=== PATIENT | female | born 1970 | race African-American/Black ===

== ENCOUNTER → 2020-06-13 13:48 | Outpatient (CLI) | payer OTHER, SELFPAY ==
--- NOTE | ~2020-06-13 | CT_ITS ---
EXAMINATION: CT abdomen pelvis wo con DATE: 06/13/2020 14:48 INDICATION: Hernia. TECHNIQUE: Computed tomography (CT) of the abdomen and pelvis was performed without intravenous contr ast. The dose-length product was 1021.57 mGy-cm. Automated exposure control and iterative reconstruct ion technique were employed. COMPARISON: 07/28/2018 FINDINGS: Lung bases are unremarkable. Heart size normal. No significant pleural or pericardial effus ion. The liver, spleen, pancreas, adrenal glands and kidneys are unremarkable. Nonobstructive bowel gas pa ttern. There is a small fat-containing left inguinal hernia. No abnormal pelvic masses or fluid colle ctions. No significant vascular abnormality. No lymphadenopathy. No acute osseous abnormality. No angus e air or free fluid. IMPRESSION: 1. Small fat-containing left inguinal hernia. Reviewed, dictated and finalized at location A.
== END ==
PROVIDERS: PCP Family Medicine; Visit Provider Surgery
DX: K40.90 Unilateral inguinal hernia, without obstruction or gangrene, not specified as recurrent (principal)
CPT/HCPCS: 74176

== ENCOUNTER 2022-09-01 16:53 | Emergency (ER) | payer OTHER, SELFPAY ==
[2022-09-01 18:15] LABS: Basophils Percent Auto 0.6 % (0.2-1.2); Eosinophils Absolute Auto 0.4 K/mm3 (0-0.3); Eosinophils Percent Auto 6.5 % (0-4.4); Hematocrit 39.3 % (37.0-47.0); Immature Granulocyte Absolute 0.02 K/mm3 (0.00-0.031); Immature Granulocyte Percent A 0.3 % (0-0.5); Lymphocytes Absolute Auto 2.08 K/mm3 (0.9-3.2); Lymphocytes Percent Auto 30.6 % (18.3-44.2); Mean Corpuscular HGB Conc 30.5 g/dl (32-36); Mean Corpuscular Hemoglobin 27.3 pg (26-34); Mean Corpuscular Volume 89.3 fl (80-100); Mean Platelet Volume 11.1 fl (7.4-10.4); Monocytes Absolute Auto 0.8 K/mm3 (0.1-0.6); Monocytes Percent Auto 12.1 % (2.6-8.5); Neutrophils Absolute Auto 3.4 K/mm3 (1.3-6.7); Neutrophils Percent Auto 49.9 % (45.5-73.1); Platelet Count Result 322 k/mm3 (150-375); Red Cell Distribution Width 12.8 % (11.5-14.5); White Blood Count 6.8 K/mm3 (4.5-10.0)
[2022-09-01 18:29] LABS: INR 1.1; Prothrombin Time 14.2 Seconds (11.1-14.7)
[2022-09-01 18:30] LABS: Partial Thromboplastin Time 30.3 SECONDS (22.3-36.8)
[2022-09-01 18:31] LABS: Alanine Aminotransferase 25 U/L (6-35); Albumin Level 3.9 g/dL (3.5-5.1); Alkaline Phosphatase 91 U/L (38-126); Anion Gap 6 mmol/L (8-16); Aspartate Amino Transferase 21 U/L (14-36); Bilirubin,Total 0.2 mg/dL (0.2-1.3); Blood Urea Nitrogen 14 mg/dL (7-17); Calcium 8.7 mg/dL (8.4-10.2); Carbon Dioxide 30 mmol/L (22-30); Chloride 106 mmol/L (98-107); Estimated CRCL calculation 84 ml/min; Estimated Glomerular Filt Rate > 60; Glucose 86 mg/dL (65-110); Potassium 3.9 mmol/L (3.4-5.0); Sodium 142 mmol/L (137-145)
[2022-09-02 00:29] VITALS: BP 150/95; PULSE 85; RESP 16; O2SAT 98
[2022-09-02 01:35] VITALS: BP 123/89; PULSE 89; RESP 19; O2SAT 97
[2022-09-02] MEDS: DOCUSATE SODIUM 100 MG CAPSULE PO (02:01)
--- NOTE | 2022-09-02 02:20 | ED.GENADULT ---
HPI - General Adult General Chief complaint: GI Bleed Stated complaint: rectal bleeding Time Seen by Provider: 09/02/22 00:38 History of Present Illness HPI narrative: Patient is a 52-year-old female who presents ER with concerns for hernia discomfort and bleeding from her rectum. She has been straining to poop the last couple days and has been passing hard nuggets. It is associated bright red blood on 1 occasion. No pain around the rectum. She has also developed some increased pain along her lower abdominal wall near the inguinal area where she is known to have a inguinal hernia. She is discussed with Dr. Astudillo in the past having it repaired but had not proceeded with the procedure. No large defect. She is passing gas. No abdominal distention or bloating. Denies fevers chills or sweats. Pain is worse with straining and direct palpation. Related Data Home Medications Medication Instructions Recorded Confirmed cetirizine 5 mg tablet 5 mg PO HS 07/10/20 06/12/22 Allergies Allergy/AdvReac Type Severity Reaction Status Date / Time iodine Allergy Unknown ITCHING, Verified 09/02/22 00:52 SWELLING, WHEEZING lactase Allergy Unknown Wheezing Verified 09/02/22 00:52 milk Allergy Unknown Wheezing Verified 09/02/22 00:52 naproxen Allergy Unknown BLEEDING Verified 09/02/22 00:52 ULCER NSAIDS (Non-Steroidal Allergy Unknown BLEEDING Verified 09/02/22 00:52 Anti-Inflamma ULCER WITH PRESCIPTION NSAIDS Penicillins Allergy Unknown Unknown Verified 09/02/22 00:52 Reaction Contrast Media Allergy Unknown RESPIR. Uncoded 09/02/22 00:52 DISTRESS Dairy Allergy Unknown WHEEZING Uncoded 09/02/22 00:52 Review of Systems Review of Systems: All systems reviewed & are unremarkable except as noted in HPI and below Constitutional: Constitutional: Denies chills and Denies fever(s) Cardiovascular: Cardiovascular: Denies chest pain, Denies rapid heart rate and Denies radiating jaw, neck or arm pain Respiratory: Respiratory: Denies cough and Denies dyspnea Gastrointestinal: Gastrointestinal: Reports abdominal pain, Reports constipation, Denies diarrhea, Denies nausea and Denies vomiting Genitourinary: Genitourinary: Denies nocturia and Denies dysuria REPLACED BY [facility] Past Medical History Medical History (Updated 09/02/22 @ 02:21 by Gianni Rasmussen MD) Anemia Asthma Bronchitis History of GI bleed History of ovarian cyst 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 Moderate persistent asthma Pollen allergies Ulcer Surgical History Surgical History H/O hernia repair 2014 and 2016 History of classical section x3 History of colonoscopy History of esophagogastroduodenoscopy (EGD) History of hysterectomy History of tooth extraction multiple Family History Family History Mother Family history of osteoporosis Asthma Patient's mother is in good health Father Family history of heart disease in male family member before age 55 Hypertension Asthma Patient's father is in good health Family history of cardiovascular disease Diabetes mellitus Grandparent Colon cancer Other Family history of allergic disorder Social History Social History Social History: Smoking status: Never smoker Second hand tobacco smoke exposure: No Alcohol intake: never Substance use: never Substance use type: does not use 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 HEAD: Normocephalic, atraumatic. CHEST: Clear to auscultation. No respiratory distress. HEART: Regular ra
== END 2022-09-02 02:50 | disposition home or self-care (01) ==
PROVIDERS: Emergency Medicine; Emergency Provider Emergency Medicine; PCP Family Medicine
DX: K59.00 Constipation, unspecified (principal); J45.40 Moderate persistent asthma, uncomplicated; Z86.2 Personal history of diseases of the blood and blood-forming organs and certain disorders involving the immune mechanism; Z90.710 Acquired absence of both cervix and uterus
CPT/HCPCS: 36415; 80053; 85025; 85610; 85730; 86850; 86900; 86901; 99283; A9270

== ENCOUNTER 2022-09-23 09:55 | Inpatient (IN) | payer OTHER, SELFPAY ==
[2022-09-23] VITALS (15 sets, daily range): BP systolic 137–172; BP diastolic 75–104; PULSE 96–118; RESP 16–26; TEMP 36.1–36.6; O2SAT 98–100; BMI 31.8
--- NOTE | 2022-09-23 | ECHO_ITS ---
Patient Info Name: Jeri Sellers Age: 52 years : 1970 Gender: Female Ht: 68 in Wt: 202 lbs BSA: 2.12 m2 HR: 110 bpm BP: 148 / 83 mmHg Heart Rhythm: Tachycardia Technical Quality: Fair Exam Date: 09/23/2022 4:39 PM Exam Location: [facility] Pul[facility] Patient Status: Outpatient Admit Date: 09/23/2022 Staff Ordering Physician: Dahiana Thornton NP Risk Tech: Casi Reynolds RDCS Attending Provider: Aleida Vera MD Referring Physician: Hillary ISRAEL; Exam Type: CA echo doppler color flow Study Info Indications R07.9 - Chest pain, unspecified Complete two-dimensional, color flow and Doppler transthoracic echocardiogram is performed. Summary 1. Complete two-dimensional, color flow and Doppler transthoracic echocardiogram is performed. 2. Left ventricular chamber dimension is normal. 3. Left ventricular systolic function is normal, estimated at 65-70%. 4. The left ventricular diastolic function is grade II diastolic dysfunction. 5. E/e' 8 is minimally elevated. 6. There is trace tricuspid valve regurgitation. 7. No pulmonary hypertension, estimated pulmonary arterial systolic pressure is 20 mmHg. Left Ventricle E/e' 8 is minimally elevated. Left ventricular chamber dimension is normal. Left ventricular systolic function is normal, estimated at 65-70%. The left ventricular diastolic function is grade II diastolic dysfunction. Right Ventricle Right ventricular systolic function is normal and with normal TAPSE 1.8 cm. Right ventricular chamber dimension is normal. Left Atria Left atrial chamber dimension is normal. Right Atria Right atrial chamber dimension is normal. Aortic Valve The aortic valve is trileaflet. There is no aortic valve stenosis. There is no aortic valve regurgitation. Pulmonic Valve There is no pulmonic regurgitation. Mitral Valve There is no mitral valve stenosis. There is no mitral valve regurgitation. Tricuspid Valve There is trace tricuspid valve regurgitation. No pulmonary hypertension, estimated pulmonary arterial systolic pressure is 20 mmHg. Pericardium/Pleural There is no pericardial effusion. Inferior Vena Cava Normal inferior vena cava with >50% collapse upon inspiration consistent with normal right atrial pressure, 5 mmHg. Aorta The aortic root size at the sinus of Valsalva is normal. Left Ventricular Outflow Tract Name Value Normal LVOT 2D LVOT Diameter 2.0 cm LVOT Doppler LVOT Peak Gradient 5 mmHg LVOT Mean Gradient 2 mmHg LVOT VTI 19 cm LVOT VTI/AV VTI Ratio 0.8 LVOT Stroke Volume 60 ml LVOT CO 6.3 l/min LVOT CI 3.0 l/min/m2 Pulmonic Valve Name Value Normal RVOT Doppler
--- NOTE | ~2022-09-23 | US_ITS ---
EXAMINATION: US venous doppler [facility] DATE: 09/23/2022 14:03 INDICATION: Bilateral lower limb pain TECHNIQUE: Sethi scale images without and with compression and Doppler images of the bilateral lower e xtremity veins were obtained. COMPARISON: None FINDINGS: The right common femoral vein, profunda femoral vein, femoral vein, popliteal vein, peroneal trunk, p osterior tibial veins, and greater saphenous vein are patent. The left common femoral vein, profunda femoral vein, femoral vein, popliteal vein, peroneal trunk, po sterior tibial veins, and greater saphenous vein are patent. IMPRESSION: 1. Patent bilateral lower extremity veins. No evidence of deep venous thrombosis. Reviewed, dictated and finalized at location L. PUBLIC RELATIONS IMPRESSION: 1. Patent bilateral lower extremity veins. No evidence of deep venous thrombosi s.
--- NOTE | ~2022-09-23 | CT_ITS ---
Clinical Indication: Dyspnea CT Scan of the Chest with Contrast: Technique: Contiguous sections were acquired throughout the chest after intravenous administration of 100 cc of Omnipaque 350. Dose reduction technique was used on this scan by utilizing automated expos ure control and iterative reconstruction technique. The dose-length product (DLP) was 355.06 mGy-cm. COMPARISON: 08/18/2014 Findings: There is no evidence of any significant mediastinal, hilar or axillary lymphadenopathy. There is no f illing defect in the pulmonary arterial tree to suggest pulmonary embolus. There is no evidence of ao rtic dissection or aneurysm. There is no evidence of pleural or pericardial effusion. Stable 4 mm fissural nodule along the anterior right minor fissure. Images through the upper abdomen reveal no abnormalities. Impression: No evidence of pulmonary embolus, aortic dissection, or aortic aneurysm. Stable fissural nodule, as noted above. Stability over this time interval is compatible with benignit y. No significant pulmonary abnormality seen. Reviewed, dictated and finalized at [facility]. 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 Stable fissural nodule, as noted above. Stability over this time interval is co mpatible with benignity. No significant pulmonary abnormality seen.
--- NOTE | ~2022-09-23 | XR_ITS ---
Clinical Indication: Chest pain PA and lateral views of the chest: Comparison: 07/29/2019 Findings: The lungs are clear, without evidence of focal consolidation or pleural effusion. Cardiome diastinal silhouette is within normal limits. Bones and soft tissues are unremarkable. Impression: Normal chest. Reviewed, dictated and finalized at [facility]. 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
--- NOTE | 2022-09-23 09:56 | ECG_ITS ---
Measurements Intervals [place] Rate: 101 P: 112 AL: 180 QRS: 174 QRSD: 97 T: 151 QT: 331 QTc: 430 Interpretive Statements SINUS TACHYCARDIA ARM LEADS REVERSED [INVERTED P AND QRS IN I] ABNORMAL RHYTHM ECG NO PREVIOUS ECG AVAILABLE FOR COMPARISON Electronically Signed On 09-23-2022 14:52:54 MACHINE HOSE CUTTER by Bri Spann M.D.
[2022-09-23 10:13] LABS: Basophils Absolute Auto 0.1 K/mm3 (0.0-0.1); Basophils Percent Auto 0.8 % (0.2-1.2); Eosinophils Absolute Auto 0.5 K/mm3 (0-0.3); Eosinophils Percent Auto 7.7 % (0-4.4); Hematocrit 36.9 % (37.0-47.0); Hemoglobin 11.5 g/dL (12.0-15.0); Immature Granulocyte Absolute 0.01 K/mm3 (0.00-0.031); Immature Granulocyte Percent A 0.2 % (0-0.5); Lymphocytes Absolute Auto 2.01 K/mm3 (0.9-3.2); Lymphocytes Percent Auto 32.7 % (18.3-44.2); Mean Corpuscular HGB Conc 31.2 g/dl (32-36); Mean Corpuscular Hemoglobin 26.8 pg (26-34); Monocytes Absolute Auto 0.7 K/mm3 (0.1-0.6); Monocytes Percent Auto 11.9 % (2.6-8.5); Neutrophils Absolute Auto 2.9 K/mm3 (1.3-6.7); Neutrophils Percent Auto 46.7 % (45.5-73.1); Platelet Count Result 290 k/mm3 (150-375); Red Blood Count 4.29 M/mm3 (4.2-5.4); Red Cell Distribution Width 12.4 % (11.5-14.5); White Blood Count 6.1 K/mm3 (4.5-10.0)
[2022-09-23 10:22] LABS: Alanine Aminotransferase 49 U/L (6-35); Albumin Level 3.5 g/dL (3.5-5.1); Alkaline Phosphatase 93 U/L (38-126); Anion Gap 3 mmol/L (8-16); Aspartate Amino Transferase 33 U/L (14-36); Bilirubin,Total 0.5 mg/dL (0.2-1.3); Blood Urea Nitrogen 9 mg/dL (7-17); Calcium 8.7 mg/dL (8.4-10.2); Carbon Dioxide 30 mmol/L (22-30); Chloride 108 mmol/L (98-107); Estimated CRCL calculation 108 ml/min; Estimated Glomerular Filt Rate > 60; Glucose 86 mg/dL (65-110); Lipase 101 U/L (23-300); Potassium 3.6 mmol/L (3.4-5.0); Sodium 141 mmol/L (137-145)
[2022-09-23 10:25] LABS: INR 1.1; Partial Thromboplastin Time 30.9 SECONDS (22.3-36.8); Prothrombin Time 13.9 Seconds (11.1-14.7)
[2022-09-23 10:35] LABS: Troponin I < 0.012 ng/mL (0.000-0.034)
--- NOTE | 2022-09-23 11:10 | ED.CHESTPAIN ---
HPI - Chest Pain General Chief Complaint: Chest Pain Stated Complaint: chest pain Time Seen by Provider: 09/23/22 10:57 History of Present Illness HPI narrative: 52-year-old female with history of asthma presents with several days of increasing dyspnea and feeling of chest pressure, she states that she thinks it might be pneumonia, she states that she is able to lay flat without having trouble breathing, and she also has bilateral lower extremity swelling for the last 2 days. No history of heart disease in the past the family history of heart disease. Also describing cough, she did try her inhalers and they did not help. Related Data Allergies Allergy/AdvReac Type Severity Reaction Status Date / Time iodine Allergy Unknown ITCHING, Verified 09/23/22 10:58 SWELLING, WHEEZING lactase Allergy Unknown Wheezing Verified 09/23/22 10:58 milk Allergy Unknown Wheezing Verified 09/23/22 10:58 naproxen Allergy Unknown BLEEDING Verified 09/23/22 10:58 ULCER NSAIDS (Non-Steroidal Allergy Unknown BLEEDING Verified 09/23/22 10:58 Anti-Inflamma ULCER WITH PRESCIPTION NSAIDS Penicillins Allergy Unknown Unknown Verified 09/23/22 10:58 Reaction Contrast Media Allergy Unknown RESPIR. Uncoded 09/23/22 10:58 DISTRESS Dairy Allergy Unknown WHEEZING Uncoded 09/23/22 10:58 Review of Systems Review of Systems: CONST: No fever. HEENT: No sore throat C/V: Chest pressure RESP: cough GI: No nausea or vomiting : No dysuria. M/S: Bilateral lower extremity edema SKIN: No rash. 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 Moderate persistent asthma Pollen allergies Ulcer Surgical History Surgical History H/O hernia repair 2014 and 2016 History of classical section x3 History of colonoscopy History of esophagogastroduodenoscopy (EGD) History of hysterectomy History of tooth extraction multiple Family History Family History Mother Family history of osteoporosis Asthma Patient's mother is in good health Father Family history of heart disease in male family member before age 55 Hypertension Asthma Patient's father is in good health Family history of cardiovascular disease Diabetes mellitus Grandparent Colon cancer Other Family history of allergic disorder Social History Social History (Updated 09/23/22 @ 12:49 by Dahiana Thornton NP) Social History: She is and has 3 children. 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 EYES: EOMI, conjunctiva normal ENT: Hearing grossly intact LUNGS: Nonlabored breathing. Some mild wheezing and expiratory HEART: Minimally tachycardic ABD: [Soft], [nontender to palpation] EXT: Normal range of motion, bilateral lower extremity edema SKIN: [No rashes or lesions.] NEURO: [Alert and oriented x 3. No gross focal sensory or strength deficits.] PSYCH: Normal affect Course Vital Signs Vital signs: V
[2022-09-23 11:29] LABS: D Dimer 0.77 ug/mL (<0.48)
[2022-09-23 11:43] LABS: NT Pro B Type Natriuretic Pept 213 pg/mL (19.9-100)
[2022-09-23] MEDS: predniSONE 40 MG, predniSONE 10 MG 50 MG PO (12:07)
--- NOTE | 2022-09-23 12:21 | PM.IMHP ---
H&P: HPI History of Present Illness Date/Time: 09/23/22 12:21 Chief Complaint: Chest pain Narrative: This is a 52-year-old female patient who has multiple allergies. The patient does not smoke and has seasonal allergies as well. The patient also has a history of asthma. She has had several days of increasing dyspnea and feeling chest pressure. The patient has chest discomfort on the right upper chest and mid chest and left upper chest and left underarm. She stated she has some tenderness to the mid chest and her left arm pain is only when she raises her left arm. She denies any extraneous activity. The patient has not used her inhalers. The patient was given a nebulizer treatment and prednisone. COVID RSV and influenza are pending. She does have a history of anemia under H&H 11.5 and 36.9. D-dimer is 0.77. We were unable to do a CTA at this time if she is allergic to contrast medium. The patient will need to be premedicated. The patient is being admitted to observation status on 09/23/2022. Review of Systems Review of Systems: See HPI All systems reviewed & are unremarkable except as noted in HPI and below Constitutional: Constitutional: Reports as per HPI and Reports no additional constitutional complaints Eyes: Eyes: Reports as per HPI and Reports no additional eye complaints ENT: Reports system reviewed and no additional complaints, except as documented and Reports Normal hearing present Cardiovascular: Cardiovascular: Reports no additional cardiovascular complaints Respiratory: Respiratory: Reports no additional respiratory complaints and Reports no additional respiratory complaints Gastrointestinal: Gastrointestinal: Reports as per HPI and Reports no additional gastrointestinal complaints Musculoskeletal: Musculoskeletal: Reports no additional musculoskeletal complaints Integumentary/Breasts: Skin/Breast: Reports system reviewed and no additional complaints, except as docu and Reports as per HPI Neurologic: Reports system reviewed and no additional complaints, except as documented, Reports as per HPI and Reports Normal hearing present Psychiatric: Psychiatric: Reports no additional psychiatric complaints and Reports as per HPI Endocrine: Endocrine: Reports no additional endocrine complaints Hematologic/Lymphatic: Hematologic/Lymphatic: Reports no additional hematologic/lymphatic complaints Allergic/Immunologic: Allergic/Immunologic: Reports no additional allergic/immunologic complaints [facility] Past Medical History Medical History (Updated 09/23/22 @ 12:59 by Dahiana Thornton NP) Anemia Asthma Bronchitis History of GI bleed History of ovarian cyst 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 Moderate persistent asthma Pollen allergies Ulcer Surgical History Surgical History H/O hernia repair 2015 and 2016 History of classical section x3 History of colonoscopy History of esophagogastroduodenoscopy (EGD) History of hysterectomy History of tooth extraction multiple Family History Family History Mother Family history of osteoporosis Asthma Patient's mother is in good health Father Family history of heart disease in male family member before age 55 Hypertension Asthma Patient's father is in good health Family history of cardiovascular disease Diabetes mellitus Grandparent Colon cancer Other Family history of allergic disorder Social History Social History (Updated 09/23/22 @ 12:49 by Dahiana Thornton NP) Social History: She is and has 3 children. 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
[2022-09-23] MEDS: ALBUTEROL SULFATE NEB 2.5 MG/3 ML INH 15 MG INHALATION (12:27)
[2022-09-23] MEDS: IPRATROPIUM BR 0.02% INH SOLN 0.5 MG/2.5 ML VIAL 1 MG INHALATION ×2 (12:27→21:29)
[2022-09-23 12:54] LABS: Influenza A QL RT-PCR Negative (Negative); Influenza B QL RT-PCR Negative (Negative); RSV RNA, RT-PCR Negative (Negative); SARS-CoV-2 RNA PCR Negative
[2022-09-23] MEDS: MAGNESIUM SULF 2 GM/WATER 50ML 2 GM/50 ML BAG IVPB (12:56)
[2022-09-23 13:06] LABS: Troponin I < 0.012 ng/mL (0.000-0.034)
--- NOTE | 2022-09-23 14:40 | ADMGEN ---
This patient, Jeri Sellers, was admitted to [facility] Surg Room 323-02. Patient/family oriented to hospital policies and general routines including ID bracelet, bed and alarms, visiting hours, pain management, procedures, bathroom and other care routines, personal items, smoking policy, room service/diet, and visiting hours. Information on how to activate the Rapid Response Team has been discussed. Patient/Family are encouraged to report perceived risks to care and to ask questions if they do not understand what they are told or what they should do.
[2022-09-23 16:05] LABS: Troponin I < 0.012 ng/mL (0.000-0.034)
[2022-09-23] MEDS: methylPREDNISolone SOD SUCC 125 MG VIAL 60 MG IV PUSH (19:54)
[2022-09-23] MEDS: MONTELUKAST SODIUM 10 MG TABLET PO (20:02)
[2022-09-23] MEDS: ALBUTEROL SULFATE NEB 2.5 MG/3 ML INH 1.25 MG INHALATION (21:28)
[2022-09-24] VITALS (16 sets, daily range): BP systolic 140–164; BP diastolic 85–97; PULSE 102–130; RESP 16–18; TEMP 36.2–36.8; O2SAT 98–100
[2022-09-24] MEDS: methylPREDNISolone SOD SUCC 125 MG VIAL 60 MG IV PUSH ×4 (01:00→17:37)
--- NOTE | 2022-09-24 03:26 | PCRCNOTE ---
Window of time for administration has passed. See next scheduled administration.
[2022-09-24 06:09] LABS: Hematocrit 36.6 % (37.0-47.0); Hemoglobin 11.6 g/dL (12.0-15.0); Immature Granulocyte Absolute 0.04 K/mm3 (0.00-0.031); Immature Granulocyte Percent A 0.6 % (0-0.5); Lymphocytes Absolute Auto 0.57 K/mm3 (0.9-3.2); Lymphocytes Percent Auto 8.2 % (18.3-44.2); Mean Corpuscular HGB Conc 31.7 g/dl (32-36); Mean Corpuscular Hemoglobin 26.7 pg (26-34); Mean Corpuscular Volume 84.3 fl (80-100); Mean Platelet Volume 11.1 fl (7.4-10.4); Monocytes Absolute Auto 0.1 K/mm3 (0.1-0.6); Monocytes Percent Auto 1.2 % (2.6-8.5); Neutrophils Absolute Auto 6.2 K/mm3 (1.3-6.7); Platelet Count Result 317 k/mm3 (150-375); Red Blood Count 4.34 M/mm3 (4.2-5.4); Red Cell Distribution Width 12.2 % (11.5-14.5); White Blood Count 6.9 K/mm3 (4.5-10.0)
[2022-09-24 06:24] LABS: Alanine Aminotransferase 41 U/L (6-35); Albumin Level 3.5 g/dL (3.5-5.1); Alkaline Phosphatase 89 U/L (38-126); Anion Gap 5 mmol/L (8-16); Aspartate Amino Transferase 29 U/L (14-36); Bilirubin,Total 0.4 mg/dL (0.2-1.3); Blood Urea Nitrogen 11 mg/dL (7-17); Calcium 8.9 mg/dL (8.4-10.2); Carbon Dioxide 26 mmol/L (22-30); Chloride 109 mmol/L (98-107); Estimated CRCL calculation 129 ml/min; Estimated Glomerular Filt Rate > 60; Glucose 133 mg/dL (65-110); Magnesium 2.1 mg/dL (1.6-2.3); Potassium 3.6 mmol/L (3.4-5.0); Sodium 140 mmol/L (137-145)
[2022-09-24 06:57] LABS: Thyroid Stimulating Hormone Reflex < 0.015 uIU/mL (0.465-4.68)
[2022-09-24] MEDS: diphenhydrAMINE HCl INJ 50 MG/ML VIAL IV PUSH (07:29)
--- NOTE | 2022-09-24 08:14 | PC.NURSE ---
patient to CT per wheelchair
--- NOTE | 2022-09-24 08:32 | PC.NURSE ---
patient returning to room from ct
[2022-09-24] MEDS: ENOXAPARIN 40 MG/0.4 ML SYRINGE SUB-Q (08:34)
--- NOTE | 2022-09-24 09:00 | PM.IMPN ---
Progress Note: A&P Assessment and Plan (1) Asthma exacerbation: Code(s): J45.901 - Unspecified asthma with (acute) exacerbation Status: Acute Assessment and Plan: HX of asthma Continue neb treatments, singulair, and solumedrol Currently stable on room air No wheezing noted Continue to trend (2) Chest pain: Code(s): R07.9 - Chest pain, unspecified Status: Acute Assessment and Plan: Chest pain noted to be middle chest radiating under the right breast Cardiac enzymes negative Echo shows EF of 65-70% with grade 2 diastolic heart failure Flu, Covid, and RSV negative Probably secondary to cough or could be from tachycardia or CHF (3) Elevated d-dimer: Code(s): R79.89 - Other specified abnormal findings of blood chemistry Status: Acute Assessment and Plan: DDimer elevated at 0.77 CTA negative or PE Venous (4) Congestive heart failure: Code(s): I50.9 - Heart failure, unspecified Status: Acute Assessment and Plan: Could be an acute exacerbation of diastolic heart failure Tachycardia, chest pain, lower extremity swelling Give 40mg IV lasix x 1 Zana hose Echo shows EF of 56-70% with grade 2 diastolic dysfunction Daily weights Strict I&Os Time Spent With Patient Time: 52 minutes Subjective Date/time seen: 09/24/22 09 Interval history: 09/24/22899 Patient is laying in bed. She stated that she is still having chest pain that radiated under the right breast. She can take a deep breath and did state that she feels a lot better than she did yesterday. She denies any chest pain, shortness of breath, nausea, vomiting, diarrhea, constipation. She does have some left lower leg swelling. She is also tachycardiac and her BNP is slightly elevated, and echo shows grade II diastolic dysfunction. 09/23/22 1221 This is a 52-year-old female patient who has multiple allergies.? The patient does not smoke and has seasonal allergies as well.? The patient also has a history of asthma.? She has had several days of increasing dyspnea and feeling chest pressure.? The patient has chest discomfort on the right upper chest and mid chest and left upper chest and left underarm.? She stated she has some tenderness to the mid chest and her left arm pain is only when she raises her left arm.? She denies any extraneous activity.? The patient has not used her inhalers.? The patient was given a nebulizer treatment and prednisone.? COVID RSV and influenza are pending.? She does have a history of anemia under H&H 11.5 and 36.9.? D-dimer is 0.77.? We were unable to do a CTA at this time if she is allergic to contrast medium.? The patient will need to be premedicated.? The patient is being admitted to observation status on 09/23/2022. Review of Systems Review of Systems: All systems reviewed & are unremarkable except as noted in HPI and below Exam Narrative: General: well-nourished, well-appearing 52-year-old female, sitting up in bed, comfortable, NARD Neuro: awake, alert and oriented x4, speech clear, no focal neuro deficits noted HEENMT: normocephalic, atraumatic, EOMI, sclerae anicteric, moist oral mucosa Respiratory: Clear to auscultation bilaterally without crackles, rhonchi or wheezes, nonlabored breathing Cardio: tachycardiac, regular rhythm with S1-S2 Abdomen: nondistended, normoactive bowel sounds, soft, nontender to palpation Extremities: 1-2+ bilateral lower extremity pitting edema, no erythema, or tenderness to palpation, DP pulses 2+ bilaterally Skin: no rashes or lesions, warm and dry Psych: appropriate mood and affect, judgment and insight intact Objective Data Vital Signs Vital Signs: Vital Signs - 24 hr 09/23/22 14:55 09/23/22 14:30 09/23/22 16:00 Temperature 97 F L Pulse Rate 110 H 110 H 108 H Respiratory Rate 16 16 Blood Pressure 148/83 H Pulse Oximetry 99 99 Oxygen Delivery Room Air
[2022-09-24 09:52] LABS: Free T4 Free Thyroxine Reflex 3.99 ng/dL (0.78-2.19)
[2022-09-24] MEDS: FUROSEMIDE INJ 40 MG/4 ML VIAL IV PUSH ×2 (10:23→17:37)
[2022-09-24] MEDS: METOPROLOL TARTRATE INJ 5 MG/5 ML VIAL IV PUSH (14:09)
[2022-09-24] MEDS: METOPROLOL TARTRATE 12.5 MG TABLET PO ×2 (15:16→20:46)
[2022-09-24] MEDS: PANTOPRAZOLE SODIUM IV 40 MG VIAL IV PUSH ×2 (15:16→20:47)
[2022-09-24] MEDS: METOPROLOL TARTRATE INJ 5 MG/5 ML VIAL 2.5 MG IV PUSH (15:45)
[2022-09-24] MEDS: MONTELUKAST SODIUM 10 MG TABLET PO (20:46)
[2022-09-25] VITALS (10 sets, daily range): BP systolic 127–135; BP diastolic 80–87; PULSE 95–111; RESP 16–20; TEMP 36.1–36.5; O2SAT 99–100
[2022-09-25] MEDS: methylPREDNISolone SOD SUCC 125 MG VIAL 60 MG IV PUSH ×2 (01:12→05:13)
[2022-09-25 06:03] LABS: Basophils Percent Auto 0.1 % (0.2-1.2); Hematocrit 40.9 % (37.0-47.0); Hemoglobin 12.9 g/dL (12.0-15.0); Immature Granulocyte Absolute 0.16 K/mm3 (0.00-0.031); Immature Granulocyte Percent A 0.8 % (0-0.5); Lymphocytes Absolute Auto 0.82 K/mm3 (0.9-3.2); Mean Corpuscular HGB Conc 31.5 g/dl (32-36); Mean Corpuscular Hemoglobin 27.2 pg (26-34); Mean Corpuscular Volume 86.3 fl (80-100); Mean Platelet Volume 10.8 fl (7.4-10.4); Monocytes Absolute Auto 0.6 K/mm3 (0.1-0.6); Monocytes Percent Auto 2.7 % (2.6-8.5); Neutrophils Absolute Auto 19.2 K/mm3 (1.3-6.7); Neutrophils Percent Auto 92.4 % (45.5-73.1); Platelet Count Result 357 k/mm3 (150-375); Red Blood Count 4.74 M/mm3 (4.2-5.4); Red Cell Distribution Width 12.5 % (11.5-14.5); White Blood Count 20.7 K/mm3 (4.5-10.0)
[2022-09-25 06:18] LABS: Alanine Aminotransferase 38 U/L (6-35); Albumin Level 4.1 g/dL (3.5-5.1); Alkaline Phosphatase 87 U/L (38-126); Anion Gap 8 mmol/L (8-16); Aspartate Amino Transferase 24 U/L (14-36); Bilirubin,Total 0.5 mg/dL (0.2-1.3); Blood Urea Nitrogen 21 mg/dL (7-17); Calcium 9.2 mg/dL (8.4-10.2); Carbon Dioxide 27 mmol/L (22-30); Chloride 104 mmol/L (98-107); Cholesterol 171 mg/dL (0-200); Estimated CRCL calculation 110 ml/min; Estimated Glomerular Filt Rate > 60; Glucose 142 mg/dL (65-110); HDL Direct 49 mg/dL; Magnesium 2.2 mg/dL (1.6-2.3); Potassium 3.7 mmol/L (3.4-5.0); Sodium 139 mmol/L (137-145); Triglycerides 53 mg/dL (<150)
[2022-09-25 06:29] LABS: LDL Cholesterol Direct 71 mg/dL
[2022-09-25] MEDS: ENOXAPARIN 40 MG/0.4 ML SYRINGE SUB-Q (09:03)
[2022-09-25] MEDS: METOPROLOL TARTRATE 25 MG TABLET PO ×2 (09:03→20:34)
[2022-09-25] MEDS: PANTOPRAZOLE SODIUM IV 40 MG VIAL IV PUSH ×2 (09:04→20:34)
--- NOTE | 2022-09-25 09:45 | P.PNIM_ITS ---
Progress Note: A&P Assessment and Plan (1) Asthma exacerbation: Code(s): J45.901 - Unspecified asthma with (acute) exacerbation Status: Acute Assessment and Plan: * HX of asthma * Continue neb treatments, singulair, and solumedrol * Currently stable on room air * Wheezing on exam, change solumedrol to PO prednisone. * Continue to trend (2) Chest pain: Code(s): R07.9 - Chest pain, unspecified Status: Acute Assessment and Plan: * Chest pain noted to be middle chest radiating under the right breast * Cardiac enzymes negative * Echo shows EF of 65-70% with grade 2 diastolic heart failure * Flu, Covid, and RSV negative * Probably secondary to cough or could be from tachycardia or CHF * Better today * Could be related to tachycardia or CHF (3) Elevated d-dimer: Code(s): R79.89 - Other specified abnormal findings of blood chemistry Status: Acute Assessment and Plan: * DDimer elevated at 0.77 * CTA negative or PE * Venous dopplers negative (4) Congestive heart failure: Code(s): I50.9 - Heart failure, unspecified Status: Acute Assessment and Plan: * Could be an acute exacerbation of diastolic heart failure * Tachycardia, chest pain, lower extremity swelling * Give 40mg IV lasix x 1 * Zana hose * Echo shows EF of 56-70% with grade 2 diastolic dysfunction * Daily weights * Strict I&Os (5) Tachycardia: Code(s): R00.0 - Tachycardia, unspecified Status: Acute Assessment and Plan: * Uncontrolled heart rate * HR range 110-130 * Increased metoprolol to 25mg PO BID * Continue tele for now * Trend Heart rate * Adjust therapy as indicated Time Spent With Patient Time: 48 minutes Time with patient: Greater than 35 minutes Subjective Date/time seen: 09/25/22944 Interval history: 09/25/22944 Patient is doing ok. She stated that she feels a lot better. The chest pain is better. She stated that she does still have some pain in the left chest, but nothing like yesterday. She also thinks her breathing is better. She did exhibit some wheezes. HR is still elevated between the 110-130s. Increased metoprolol at this time to see if that would help. She is wanting to go home, however, her heart rate is still relatively elevated. She denied any weakness or fatigue. 09/24/22 0900 Patient is laying in bed. She stated that she is still having chest pain that radiated under the right breast. She can take a deep breath and did state that she feels a lot better than she did yesterday. She denies any chest pain, shortness of breath, nausea, vomiting, diarrhea, constipation. She does have some left lower leg swelling. She is also tachycardiac and her BNP is slightly elevated, and echo shows grade II diastolic dysfunction. 09/23/22 1221 This is a 52-year-old female patient who has multiple allergies.? The patient does not smoke and has seasonal allergies as well.? The patient also has a history of asthma.? She has had several days of increasing dyspnea and feeling chest pressure.? The patient has chest discomfort on the right upper chest and mid chest and left upper chest and left underarm.? She stated she has some tenderness to the mid chest and her left arm pain is only when she raises her left arm.? She denies any extraneous activity.? The patient has not used her inhalers.? The patient was given a nebul
--- NOTE | 2022-09-25 09:45 | PM.IMPN ---
Progress Note: A&P Assessment and Plan (1) Asthma exacerbation: Code(s): J45.901 - Unspecified asthma with (acute) exacerbation Status: Acute Assessment and Plan: HX of asthma Continue neb treatments, singulair, and solumedrol Currently stable on room air Wheezing on exam, change solumedrol to PO prednisone. Continue to trend (2) Chest pain: Code(s): R07.9 - Chest pain, unspecified Status: Acute Assessment and Plan: Chest pain noted to be middle chest radiating under the right breast Cardiac enzymes negative Echo shows EF of 65-70% with grade 2 diastolic heart failure Flu, Covid, and RSV negative Probably secondary to cough or could be from tachycardia or CHF Better today Could be related to tachycardia or CHF (3) Elevated d-dimer: Code(s): R79.89 - Other specified abnormal findings of blood chemistry Status: Acute Assessment and Plan: DDimer elevated at 0.77 CTA negative or PE Venous dopplers negative (4) Congestive heart failure: Code(s): I50.9 - Heart failure, unspecified Status: Acute Assessment and Plan: Could be an acute exacerbation of diastolic heart failure Tachycardia, chest pain, lower extremity swelling Give 40mg IV lasix x 1 Zana hose Echo shows EF of 56-70% with grade 2 diastolic dysfunction Daily weights Strict I&Os (5) Tachycardia: Code(s): R00.0 - Tachycardia, unspecified Status: Acute Assessment and Plan: Uncontrolled heart rate HR range 110-130 Increased metoprolol to 25mg PO BID Continue tele for now Trend Heart rate Adjust therapy as indicated Time Spent With Patient Time: 48 minutes Time with patient: Greater than 35 minutes Subjective Date/time seen: 09/25/22944 Interval history: 09/25/22944 Patient is doing ok. She stated that she feels a lot better. The chest pain is better. She stated that she does still have some pain in the left chest, but nothing like yesterday. She also thinks her breathing is better. She did exhibit some wheezes. HR is still elevated between the 110-130s. Increased metoprolol at this time to see if that would help. She is wanting to go home, however, her heart rate is still relatively elevated. She denied any weakness or fatigue. 09/24/22899 Patient is laying in bed. She stated that she is still having chest pain that radiated under the right breast. She can take a deep breath and did state that she feels a lot better than she did yesterday. She denies any chest pain, shortness of breath, nausea, vomiting, diarrhea, constipation. She does have some left lower leg swelling. She is also tachycardiac and her BNP is slightly elevated, and echo shows grade II diastolic dysfunction. 09/23/22 1221 This is a 52-year-old female patient who has multiple allergies.? The patient does not smoke and has seasonal allergies as well.? The patient also has a history of asthma.? She has had several days of increasing dyspnea and feeling chest pressure.? The patient has chest discomfort on the right upper chest and mid chest and left upper chest and left underarm.? She stated she has some tenderness to the mid chest and her left arm pain is only when she raises her left arm.? She denies any extraneous activity.? The patient has not used her inhalers.? The patient was given a nebulizer treatment and prednisone.? COVID RSV and influenza are pending.? She does have a history of anemia under H&H 11.5 and 36.9.? D-dimer is 0.77.? We were unable to do a CTA at this time if she is allergic to contrast medium.? The patient will need to be premedicated.? The patient is being admitted to observation status on 09/23/2022. Review of Systems Review of Systems: All systems reviewed & are unremarkable except as noted in HPI and below Exam Narrative: General: well-nourished, well-appeari
[2022-09-25] MEDS: predniSONE 20 MG TABLET 40 MG PO (15:44)
[2022-09-25] MEDS: MONTELUKAST SODIUM 10 MG TABLET PO (20:34)
[2022-09-25] MEDS: guaiFENesin/DEXTROMETHORPHAN 10 ML UDC 5 ML PO (21:31)
[2022-09-26] VITALS: PULSE 96
[2022-09-26 04:00] VITALS: PULSE 100
[2022-09-26 06:00] VITALS: BP 132/79; PULSE 95; RESP 16; TEMP 36.3; O2SAT 95
[2022-09-26 06:29] LABS: Basophils Percent Auto 0.1 % (0.2-1.2); Hematocrit 38.2 % (37.0-47.0); Hemoglobin 12.1 g/dL (12.0-15.0); Immature Granulocyte Absolute 0.09 K/mm3 (0.00-0.031); Immature Granulocyte Percent A 0.6 % (0-0.5); Lymphocytes Absolute Auto 1.22 K/mm3 (0.9-3.2); Lymphocytes Percent Auto 8.5 % (18.3-44.2); Mean Corpuscular HGB Conc 31.7 g/dl (32-36); Mean Corpuscular Hemoglobin 26.9 pg (26-34); Mean Corpuscular Volume 84.9 fl (80-100); Mean Platelet Volume 11.2 fl (7.4-10.4); Monocytes Absolute Auto 1.1 K/mm3 (0.1-0.6); Monocytes Percent Auto 7.4 % (2.6-8.5); Neutrophils Absolute Auto 11.9 K/mm3 (1.3-6.7); Neutrophils Percent Auto 83.4 % (45.5-73.1); Platelet Count Result 338 k/mm3 (150-375); Red Cell Distribution Width 12.4 % (11.5-14.5); White Blood Count 14.3 K/mm3 (4.5-10.0)
[2022-09-26 06:42] LABS: Alanine Aminotransferase 32 U/L (6-35); Albumin Level 3.4 g/dL (3.5-5.1); Alkaline Phosphatase 77 U/L (38-126); Anion Gap 4 mmol/L (8-16); Aspartate Amino Transferase 21 U/L (14-36); Bilirubin,Total 0.4 mg/dL (0.2-1.3); Blood Urea Nitrogen 24 mg/dL (7-17); Calcium 8.7 mg/dL (8.4-10.2); Carbon Dioxide 29 mmol/L (22-30); Chloride 103 mmol/L (98-107); Estimated CRCL calculation 110 ml/min; Estimated Glomerular Filt Rate > 60; Glucose 118 mg/dL (65-110); Magnesium 2.3 mg/dL (1.6-2.3); Potassium 3.8 mmol/L (3.4-5.0); Sodium 136 mmol/L (137-145)
[2022-09-26 08:38] VITALS: PULSE 98
[2022-09-26] MEDS: predniSONE 20 MG TABLET 40 MG PO (08:38)
[2022-09-26] MEDS: METOPROLOL TARTRATE 25 MG TABLET PO (08:38)
[2022-09-26] MEDS: ENOXAPARIN 40 MG/0.4 ML SYRINGE SUB-Q (08:39)
[2022-09-26] MEDS: PANTOPRAZOLE SODIUM IV 40 MG VIAL IV PUSH (08:39)
[2022-09-26 09:00] VITALS: PULSE 92
--- NOTE | 2022-09-26 10:00 | P.DS_ITS ---
DS: Admitting Diagnosis Discharge Date 09/26/22 1000 Admitting Diagnosis Asthma flare up, uncontrolled tachycardia, chest pain DS: Discharge Diagnosis Discharge Diagnosis (1) Asthma exacerbation: Code(s): J45.901 - Unspecified asthma with (acute) exacerbation Status: Acute Assessment and Plan: * HX of asthma * Continue neb treatments, singulair, and solumedrol * Currently stable on room air * Wheezing on exam, change solumedrol to PO prednisone. * Continue to trend (2) Chest pain: Code(s): R07.9 - Chest pain, unspecified Status: Acute Assessment and Plan: * Chest pain noted to be middle chest radiating under the right breast * Cardiac enzymes negative * Echo shows EF of 65-70% with grade 2 diastolic heart failure * Flu, Covid, and RSV negative * Probably secondary to cough or could be from tachycardia or CHF * Better today * Could be related to tachycardia or CHF (3) Elevated d-dimer: Code(s): R79.89 - Other specified abnormal findings of blood chemistry Status: Acute Assessment and Plan: * DDimer elevated at 0.77 * CTA negative or PE * Venous dopplers negative (4) Congestive heart failure: Code(s): I50.9 - Heart failure, unspecified Status: Acute Assessment and Plan: * Could be an acute exacerbation of diastolic heart failure * Tachycardia, chest pain, lower extremity swelling * Give 40mg IV lasix x 1 * Zana hose * Echo shows EF of 56-70% with grade 2 diastolic dysfunction * Daily weights * Strict I&Os (5) Tachycardia: Code(s): R00.0 - Tachycardia, unspecified Status: Acute Assessment and Plan: * Uncontrolled heart rate * HR range 110-130 * Increased metoprolol to 25mg PO BID * Continue tele for now * Trend Heart rate * Adjust therapy as indicated DS: Summary Hospital Course Hospital Course: Patient is a 52-year-old female with a past medical history of asthma, anemia, bronchitis who presented to the ED with complaints dyspnea and chest pressure. Upon arrival patient was worked up for chest pain which came back with no rise in troponin, CTA of the chest showed no PE, venous Dopplers were negative for DVT, echo did show an EF of 65-70% with grade 2 diastolic dysfunction. BNP was noted to be mildly elevated. Flu, COVID, RSV all negative. Patient did have pretty significant uncontrolled tachycardia. Patient was given metoprolol and metoprolol has been titrated to maintain a heart rate in the 80-90s. HR has been controlled throughout the night. She is feeling better and is ready to go home. She denies any further chest pain, shortness of breath, nausea, vomiting, diarrhea, constipation, weakness or fatigue. Patient is stable for discharge at this time per labs and vital signs Status at Discharge Functional status at discharge: independent ambulation Overall status at discharge: patient is progressing back to baseline Time Spent with Patient Time attestation: Total time spent providing and/or coordinating discharge services: 56 minutes Time spent: Greater than 30 minutes Specific discharge activities: Diagnostic testing, chart review, developing a treatment plan, education, care coordination documentation, physical exam, result review Exam Narrative: General: well-nourished, well-appearing 52-year-old female, sitting up in bed, comfortable, NARD Neuro: awake, alert an
--- NOTE | 2022-09-26 10:00 | PM.DS ---
DS: Admitting Diagnosis Discharge Date 09/26/22 1000 Admitting Diagnosis Asthma flare up, uncontrolled tachycardia, chest pain DS: Discharge Diagnosis Discharge Diagnosis (1) Asthma exacerbation: Code(s): J45.901 - Unspecified asthma with (acute) exacerbation Status: Acute Assessment and Plan: HX of asthma Continue neb treatments, singulair, and solumedrol Currently stable on room air Wheezing on exam, change solumedrol to PO prednisone. Continue to trend (2) Chest pain: Code(s): R07.9 - Chest pain, unspecified Status: Acute Assessment and Plan: Chest pain noted to be middle chest radiating under the right breast Cardiac enzymes negative Echo shows EF of 65-70% with grade 2 diastolic heart failure Flu, Covid, and RSV negative Probably secondary to cough or could be from tachycardia or CHF Better today Could be related to tachycardia or CHF (3) Elevated d-dimer: Code(s): R79.89 - Other specified abnormal findings of blood chemistry Status: Acute Assessment and Plan: DDimer elevated at 0.77 CTA negative or PE Venous dopplers negative (4) Congestive heart failure: Code(s): I50.9 - Heart failure, unspecified Status: Acute Assessment and Plan: Could be an acute exacerbation of diastolic heart failure Tachycardia, chest pain, lower extremity swelling Give 40mg IV lasix x 1 Zana hose Echo shows EF of 56-70% with grade 2 diastolic dysfunction Daily weights Strict I&Os (5) Tachycardia: Code(s): R00.0 - Tachycardia, unspecified Status: Acute Assessment and Plan: Uncontrolled heart rate HR range 110-130 Increased metoprolol to 25mg PO BID Continue tele for now Trend Heart rate Adjust therapy as indicated DS: Summary Hospital Course Hospital Course: Patient is a 52-year-old female with a past medical history of asthma, anemia, bronchitis who presented to the ED with complaints dyspnea and chest pressure. Upon arrival patient was worked up for chest pain which came back with no rise in troponin, CTA of the chest showed no PE, venous Dopplers were negative for DVT, echo did show an EF of 65-70% with grade 2 diastolic dysfunction. BNP was noted to be mildly elevated. Flu, COVID, RSV all negative. Patient did have pretty significant uncontrolled tachycardia. Patient was given metoprolol and metoprolol has been titrated to maintain a heart rate in the 80-90s. HR has been controlled throughout the night. She is feeling better and is ready to go home. She denies any further chest pain, shortness of breath, nausea, vomiting, diarrhea, constipation, weakness or fatigue. Patient is stable for discharge at this time per labs and vital signs Status at Discharge Functional status at discharge: independent ambulation Overall status at discharge: patient is progressing back to baseline Time Spent with Patient Time attestation: Total time spent providing and/or coordinating discharge services: 56 minutes Time spent: Greater than 30 minutes Specific discharge activities: Diagnostic testing, chart review, developing a treatment plan, education, care coordination documentation, physical exam, result review Exam Narrative: General: well-nourished, well-appearing 52-year-old female, sitting up in bed, comfortable, NARD Neuro: awake, alert and oriented x4, speech clear, no focal neuro deficits noted HEENMT: normocephalic, atraumatic, EOMI, sclerae anicteric, moist oral mucosa Respiratory: Clear to auscultation bilaterally without crackles, rhonchi or wheezes, nonlabored breathing Cardio: tachycardiac, regular rhythm with S1-S2 Abdomen: nondistended, normoactive bowel sounds, soft, nontender to palpation Extremities: 1-2+ bilateral lower extremity pitting edema, no erythema, or tenderness to palpation, DP pulses 2+ bilaterally Skin: no rashes or lesions
== END 2022-09-26 11:40 | disposition home or self-care (01) | DRG 202 ==
LOC: ANHED 13:10 → ANH3MEDSUR 14:00
PROVIDERS: Nurse Practitioner; Admitting Provider Internal Medicine; Emergency Provider Emergency Medicine; PCP Family Medicine; Visit Provider Nurse Practitioner
DX: J45.41 Moderate persistent asthma with (acute) exacerbation (principal); I50.33 Acute on chronic diastolic (congestive) heart failure; R07.9 Chest pain, unspecified; R79.1 Abnormal coagulation profile; R00.0 Tachycardia, unspecified; Z20.822 Contact with and (suspected) exposure to COVID-19
CPT/HCPCS: 36415; 71046; 71275; 80053; 80061; 83690; 83735; 83880; 84439; 84443; 84484; 85025; 85380; 85610; 85730; 87637; 93005; 93306; 93970; 94640; 96365; 96374; 99285; A9270; C9113; G0378; J1200; J1650; J1940; J2930; J3475; J7512; Q9967

== ENCOUNTER → 2022-10-15 07:49 | Outpatient (CLI) | payer OTHER, SELFPAY ==
--- NOTE | ~2022-10-15 | US_ITS ---
EXAMINATION: US thyroid DATE: 10/15/2022 08:09 INDICATION: Thyrotoxicosis, unspecified without thyrotoxic crisis. TECHNIQUE: Multiple ultrasound images of the thyroid were obtained. COMPARISON: None. FINDINGS: The right thyroid lobe measures 5.1 x 2.2 x 2.0 cm. The left thyroid lobe measures 5.4 x 1.5 x 2.0 c m. The thyroid is diffusely heterogeneous and hypoechoic. There is increased vascularity in the thyr oid. In the right thyroid lobe, there is a 5 mm solid hypoechoic, wider than tall nodule with smooth margin without echogenic foci (TR4). In the right thyroid lobe, there is a 5 mm solid, very hypoechoi c, [id number] nodule with smooth margin without echogenic foci (TR4). IMPRESSION: 1. Heterogeneous, hypervascular thyroid, consistent with chronic lymphocytic (Jennifer) thyroiditis versus Graves' disease. 2. Small thyroid nodules, likely not clinically significant. No follow-up is needed. Reviewed, dictated and finalized at location A. MANAGER IMPRESSION: 1. Heterogeneous, hypervascular thyroid, consistent with chronic lymphocytic (H ashimoto) thyroiditis versus Graves' disease. 2. Small thyroid nodules, likely not clinically significant. No follow-up is ne eded.
== END ==
PROVIDERS: PCP Family Medicine; Visit Provider Family Medicine
DX: E05.90 Thyrotoxicosis, unspecified without thyrotoxic crisis or storm (principal); E04.2 Nontoxic multinodular goiter
CPT/HCPCS: 76536

== ENCOUNTER 2022-10-22 16:06 | Emergency (ER) | payer OTHER, SELFPAY ==
[2022-10-22] VITALS (10 sets, daily range): BP systolic 125–171; BP diastolic 73–94; PULSE 94–116; RESP 14–21; TEMP 36.4–37.1; O2SAT 96–100
--- NOTE | ~2022-10-22 | XR_ITS ---
EXAMINATION: XR chest 2V DATE: 10/22/2022 16:31 INDICATION: Chest pain. TECHNIQUE: Frontal and lateral views of the chest were obtained. COMPARISON: Chest 2 views 09/23/2022, chest CT 09/24/2022 FINDINGS: The chest demonstrates clear lungs without pneumonia, pleural effusion, or pneumothorax. Th e heart size is normal. IMPRESSION: 1. No acute cardiopulmonary disease. Reviewed, dictated and finalized at location A. ITECTURAL SALES CONSULTANT
--- NOTE | 2022-10-22 16:07 | ECG_ITS ---
Measurements Intervals [place] Rate: 110 P: 69 UT: 200 QRS: 24 QRSD: 96 T: 47 QT: 323 QTc: 437 Interpretive Statements SINUS TACHYCARDIA LEFT ATRIAL ENLARGEMENT INCOMPLETE RIGHT BUNDLE BRANCH BLOCK ABNORMAL ECG COMPARED TO ECG 09/23/2022 10:01:21 NO SIGNIFICANT CHANGES Electronically Signed On 10-22-2022 16:21:41 PROSTHETIC LAB TECHNICIAN by Frankie Renner D.O.
[2022-10-22 16:26] LABS: Basophils Percent Auto 0.6 % (0.2-1.2); Eosinophils Absolute Auto 0.5 K/mm3 (0-0.3); Eosinophils Percent Auto 6.5 % (0-4.4); Hematocrit 39.2 % (37.0-47.0); Hemoglobin 11.9 g/dL (12.0-15.0); Immature Granulocyte Absolute 0.01 K/mm3 (0.00-0.031); Immature Granulocyte Percent A 0.1 % (0-0.5); Lymphocytes Absolute Auto 2.07 K/mm3 (0.9-3.2); Lymphocytes Percent Auto 29.8 % (18.3-44.2); Mean Corpuscular HGB Conc 30.4 g/dl (32-36); Mean Corpuscular Hemoglobin 26.4 pg (26-34); Mean Corpuscular Volume 87.1 fl (80-100); Mean Platelet Volume 10.3 fl (7.4-10.4); Monocytes Absolute Auto 0.9 K/mm3 (0.1-0.6); Monocytes Percent Auto 12.4 % (2.6-8.5); Neutrophils Absolute Auto 3.5 K/mm3 (1.3-6.7); Neutrophils Percent Auto 50.6 % (45.5-73.1); Platelet Count Result 333 k/mm3 (150-375); Red Cell Distribution Width 12.7 % (11.5-14.5); White Blood Count 6.9 K/mm3 (4.5-10.0)
[2022-10-22 16:37] LABS: INR 1.1; Partial Thromboplastin Time 30.9 SECONDS (22.3-36.8); Prothrombin Time 14.1 Seconds (11.1-14.7)
[2022-10-22 16:39] LABS: Alanine Aminotransferase 55 U/L (6-35); Albumin Level 3.9 g/dL (3.5-5.1); Alkaline Phosphatase 97 U/L (38-126); Anion Gap 6 mmol/L (8-16); Aspartate Amino Transferase 42 U/L (14-36); Bilirubin,Total 0.5 mg/dL (0.2-1.3); Blood Urea Nitrogen 13 mg/dL (7-17); Calcium 9.1 mg/dL (8.4-10.2); Carbon Dioxide 27 mmol/L (22-30); Chloride 106 mmol/L (98-107); Estimated CRCL calculation 105 ml/min; Estimated Glomerular Filt Rate > 60; Glucose 85 mg/dL (65-110); Lipase 74 U/L (23-300); Potassium 3.7 mmol/L (3.4-5.0); Sodium 139 mmol/L (137-145)
[2022-10-22 16:50] LABS: Troponin I < 0.012 ng/mL (0.000-0.034)
--- NOTE | 2022-10-22 18:35 | ED.CHESTPAIN ---
HPI - Chest Pain General Chief Complaint: Chest Pain Stated Complaint: chest pain Time Seen by Provider: 10/22/22 17:35 History of Present Illness HPI narrative: Patient is a 52-year-old female with a history of asthma, hypothyroidism, hypertension presenting with palpitations and chest pain. Patient states that she was recently diagnosed with hyperthyroidism. She has been having ongoing palpitations as well as intermittent chest pain related to this. States that she had a lot of chest burning last night. She took a PPI which did not improve the pain after several hours. States that she continued to have palpitations today so she came in for evaluation. States that her PCP just uptitrated her metoprolol. States that they were going to start her on methimazole but it has a dairy product so they held off for now as the patient is allergic to dairy. Patient complains of ongoing anxiety but she denies new chest pain, lightheadedness, shortness of breath, leg swelling. No numbness or weakness, headache, vision changes, vomiting, diarrhea, dysuria. Related Data Home Medications Medication Instructions Recorded Confirmed budesonide 160 mcg-glycopyr 9 2 inh inhalation BID 09/23/22 10/20/22 mcg-formot 4.8 mcg/actuation HFA inhaler (KenguruzGlycoVaxyni [employer]) montelukast 10 mg tablet 10 mg PO QHS 09/23/22 10/20/22 Allergies Allergy/AdvReac Type Severity Reaction Status Date / Time iodine Allergy Unknown ITCHING, Verified 10/22/22 17:28 SWELLING, WHEEZING lactase Allergy Unknown Wheezing Verified 10/22/22 17:28 milk Allergy Unknown Wheezing Verified 10/22/22 17:28 naproxen Allergy Unknown BLEEDING Verified 10/22/22 17:28 ULCER NSAIDS (Non-Steroidal Allergy Unknown BLEEDING Verified 10/22/22 17:28 Anti-Inflamma ULCER WITH PRESCIPTION NSAIDS Penicillins Allergy Unknown Unknown Verified 10/22/22 17:28 Reaction Contrast Media Allergy Unknown RESPIR. Uncoded 10/22/22 17:28 DISTRESS Dairy Allergy Unknown WHEEZING Uncoded 10/22/22 17:28 Review of Systems Review of Systems: All systems reviewed & are unremarkable except as noted in HPI and below PMFSH Past Medical History Medical History Acute otitis externa of right ear Acute otitis media with effusion of right ear Acute stress reaction Anemia Asthma Asthma exacerbation Bronchitis Congestion of both ears History of GI bleed History of ovarian cyst 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 Moderate persistent asthma Pollen allergies Recurrent incisional hernia with incarceration Seasonal allergies Ulcer Surgical History Surgical History H/O hernia repair 2014 and 2016 History of classical section x3 History of colonoscopy History of esophagogastroduodenoscopy (EGD) History of hysterectomy History of tooth extraction multiple Family History Family History Mother Family history of osteoporosis Asthma Patient's mother is in good health Father Family history of heart disease in male family member before age 55 Hypertension Asthma Patient's father is in good health Family history of cardiovascular disease Diabetes mellitus Grandparent Colon cancer Other Family history of allergic disorder Social History Social History Social History: She is and has 3 children. 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 Lifelong nonsmoker Code status full code Smoking status: Never smoker Second hand tobacco smoke exposure: No Alcohol intake: never Substance use: never Substance use type: does not use Lack of Transportation: No Lack of Food: Never True Current Housing: I Have Housing Concerned About Future Housing: No Difficulty Paying Gas/Electri
[2022-10-22] MEDS: ALBUTEROL SULFATE NEB 2.5 MG/3 ML INH 5 MG INHALATION (18:45)
[2022-10-22] MEDS: LORazepam (*CRX) 0.5 MG TABLET PO (18:58)
[2022-10-22] MEDS: SODIUM CHLORIDE 0.9% IV 1,000 ML 999 ML IV CONT (18:58)
--- NOTE | 2022-10-22 19:07 | PC.NURSE ---
bedside shift report given to apurva hobson
[2022-10-22 19:19] LABS: Troponin I < 0.012 ng/mL (0.000-0.034)
== END 2022-10-22 20:43 | disposition home or self-care (01) ==
PROVIDERS: Emergency Medicine; Emergency Provider Emergency Medicine; PCP Family Medicine
DX: R07.89 Other chest pain (principal); E05.90 Thyrotoxicosis, unspecified without thyrotoxic crisis or storm; R00.0 Tachycardia, unspecified; I10 Essential (primary) hypertension; E03.9 Hypothyroidism, unspecified; Z86.2 Personal history of diseases of the blood and blood-forming organs and certain disorders involving the immune mechanism; J45.20 Mild intermittent asthma, uncomplicated; Z90.710 Acquired absence of both cervix and uterus
CPT/HCPCS: 36415; 71046; 80053; 83690; 84484; 85025; 85610; 85730; 93005; 94640; 96360; 96361; 99284; A9270; J7030

== ENCOUNTER 2022-12-03 08:08 | Outpatient (CLI) | payer OTHER, SELFPAY ==
--- NOTE | ~2022-12-03 | NM_ITS ---
EXAMINATION: NM shala stress w perfusion DATE: 12/03/2022 11:17 INDICATION: Chest pain TECHNIQUE: Rest images were obtained following intravenous administration of 9.7 mCi Tc99m tetrofosmi n (Myoview). The patient was infused intravenously with Lexiscan (Regadenoson). Then, 30.5 mCi Tc99m tetrofosmin (Myoview) was administered intravenously, and stress images were obtained initially in th e supine position with repeat post stress imaging in the prone position. Data was reconstructed into short axis and horizontal and vertical long axis SPECT images. Gated SPECT images were also obtained. COMPARISON: None. FINDINGS: Artifactual attenuation of the myocardial activity on the supine imaging likely resulting f rom adjacent intense hepatic, biliary and gastric activity. There is no definite perfusion abnormalit y on the prone post stress imaging to suggest ischemia or infarction. There is normal left ventricul ar chamber size, wall motion and ejection fraction. Left ventricular ejection fraction measures >70% . IMPRESSION: 1. Normal myocardial perfusion during stress. 2. Left ventricular ejection fraction measuring >70%. Reviewed, dictated and finalized at location A.
--- NOTE | 2022-12-03 08:15 | EST_ITS ---
Patient Info Name: Jeri Sellers Age: 52 years : 1970 Gender: Female Ht: 68 in Wt: 199 lbs BSA: 2.11 m2 HR: 94 bpm BP: 150 / 81 mmHg Heart Rhythm: Sinus Rhythm Exam Date: 12/03/2022 9:03 AM Exam Location: [facility] Stress Patient Status: Outpatient Admit Date: 12/03/2022 Staff Ordering Physician: Frankie Renner DO Attending Provider: Frankie Renner DO Exercise Technologist: Casi Reynolds RDCS Exercise Physician: Frankie Renner DO Exam Type: CA stress shala w NM Study Info A regadenoson stress test was performed. Summary 1. 1. Negative lexiscan stress test for ischemic ST changes by ECG criteria. 2. 2. Baseline hypertension. 3. 3. Nuclear scan to follow and will be reported separately. Please correlate with it. 4. 4. Patient informed of the above results. Protocol: Lexiscan Stress ECG Details Stage: REST Duration (min): 1 min : 9 sec HR (bpm): 94 SBP (mmHg): 150 DBP (mmHg): 81 Stage: REST Duration (min): 8 min : 45 sec HR (bpm): 86 SBP (mmHg): 150 DBP (mmHg): 81 Stage: STAGE 1 Duration (min): 1 min : 0 sec HR (bpm): 113 SBP (mmHg): 153 DBP (mmHg): 71 Stage: RECOVERY Duration (min): 1 min : 0 sec HR (bpm): 111 SBP (mmHg): 153 DBP (mmHg): 71 Stage: RECOVERY Duration (min): 2 min : 0 sec HR (bpm): 107 SBP (mmHg): 153 DBP (mmHg): 71 Stage: RECOVERY Duration (min): 3 min : 0 sec HR (bpm): 109 SBP (mmHg): 158 DBP (mmHg): 72 Stage: RECOVERY Duration (min): 3 min : 7 sec HR (bpm): 111 SBP (mmHg): 158 DBP (mmHg): 72 Rest HR: 86 bpm Peak HR: 113 bpm Rest Sys BP: 150 mmHg Peak Sys BP: 158 mmHg Max Pred HR: 166 bpm % Max Pred HR: 68 % Target HR: 141 bpm Max RPP: 17,854 bpm*mmHg Termination Reason: Completed protocol Cardiac Symptoms: Shortness of breath Total Time: 1 min : 0 sec Rest Torres BP: 81 mmHg Peak Torres BP: 72 mmHg Total Dose: 0.4 mg Resting ECG Sinus rhythm, IRBBB. Stress ECG No ST changes. Arrhythmias None. Report Signatures
== END 2022-12-03 08:09 | disposition home or self-care (01) ==
LOC: ANHCARD 08:11
PROVIDERS: PCP Family Medicine; Visit Provider Internal Medicine Cardiovascular Disease
DX: R07.9 Chest pain, unspecified (principal); I10 Essential (primary) hypertension
CPT/HCPCS: 78452; 93017; A9502; J2785

== ENCOUNTER 2023-04-17 14:55 | Emergency (ER) | payer OTHER, SELFPAY ==
--- NOTE | ~2023-04-17 | XR_ITS ---
EXAMINATION: XR chest 2V DATE: 04/17/2023 16:14 INDICATION: Chest pressure. TECHNIQUE: Frontal and lateral views of the chest were obtained. COMPARISON: Chest 2 views 10/22/2022 FINDINGS: There is no pneumonia, pleural effusion, or pneumothorax. The heart size is normal. Pectus excavatum is noted. IMPRESSION: 1. No acute cardiopulmonary disease. Reviewed, dictated and finalized at location E.
--- NOTE | 2023-04-17 14:57 | ECG_ITS ---
Measurements Intervals [place] Rate: 97 P: 67 GA: 182 QRS: 28 QRSD: 95 T: 48 QT: 336 QTc: 428 Interpretive Statements SINUS RHYTHM LEFT ATRIAL ENLARGEMENT INCOMPLETE RIGHT BUNDLE BRANCH BLOCK BORDERLINE ECG COMPARED TO ECG 10/22/2022 16:15:14 SINUS RHYTHM NOW PRESENT Electronically Signed On 04-17-2023 15:14:28 CDT by Frankie Renner D.O.
[2023-04-17 15:14] VITALS: BP 144/86; PULSE 100; RESP 18; TEMP 36.6; O2SAT 98
[2023-04-17 15:21] LABS: Basophils Percent Auto 0.5 % (0.2-1.2); Eosinophils Absolute Auto 0.3 K/mm3 (0-0.3); Eosinophils Percent Auto 4.4 % (0-4.4); Hemoglobin 12.2 g/dL (12.0-15.0); Immature Granulocyte Absolute 0.02 K/mm3 (0.00-0.031); Immature Granulocyte Percent A 0.3 % (0-0.5); Lymphocytes Absolute Auto 1.82 K/mm3 (0.9-3.2); Lymphocytes Percent Auto 29.7 % (18.3-44.2); Mean Corpuscular HGB Conc 30.5 g/dl (32-36); Mean Corpuscular Hemoglobin 26.5 pg (26-34); Mean Platelet Volume 10.9 fl (7.4-10.4); Monocytes Absolute Auto 0.8 K/mm3 (0.1-0.6); Monocytes Percent Auto 13.1 % (2.6-8.5); Neutrophils Absolute Auto 3.2 K/mm3 (1.3-6.7); Platelet Count Result 322 k/mm3 (150-375); Red Cell Distribution Width 13.4 % (11.5-14.5); White Blood Count 6.1 K/mm3 (4.5-10.0)
[2023-04-17 15:31] LABS: INR 1.1; Prothrombin Time 15.2 Seconds (11.1-14.7)
[2023-04-17 15:32] LABS: Partial Thromboplastin Time 31.5 SECONDS (22.3-36.8)
[2023-04-17 15:34] LABS: Alanine Aminotransferase 33 U/L (6-35); Albumin Level 4.1 g/dL (3.5-5.1); Alkaline Phosphatase 116 U/L (38-126); Anion Gap 7 mmol/L (8-16); Aspartate Amino Transferase 29 U/L (14-36); Bilirubin,Total 0.5 mg/dL (0.2-1.3); Blood Urea Nitrogen 13 mg/dL (7-17); Calcium 9.6 mg/dL (8.4-10.2); Carbon Dioxide 29 mmol/L (22-30); Chloride 104 mmol/L (98-107); Estimated CRCL calculation 93 ml/min; Estimated Glomerular Filt Rate > 60; Glucose 93 mg/dL (65-110); Lipase 55 U/L (23-300); Sodium 140 mmol/L (137-145)
[2023-04-17 15:46] LABS: Troponin I < 0.012 ng/mL (0.000-0.034)
--- NOTE | 2023-04-17 18:41 | ED.CHESTPAIN ---
HPI - Chest Pain General Chief Complaint: Chest Pain Stated Complaint: chest heaviness, fast HR Time Seen by Provider: 04/17/23 18:21 Source: patient Mode of arrival: ambulatory Limitations: no limitations History of Present Illness HPI narrative: This is a 53 year old female that presents to the ER for chest tightness. Ongoing intermittently over the last two weeks. Associated with fatigue, palpitations, and burning abdominal discomfort. Reports she believes her symptoms are attributed to her Graves disease. She recently had her thyroid function labs done for this and her medications were increased. She was prompted to be seen in the ER by her Paving Inspector. Reports shortness of breath which is chronic due to her asthma. Denies fever, cough, or lower extremity edema. Related Data Allergies Allergy/AdvReac Type Severity Reaction Status Date / Time iodine Allergy Unknown ITCHING, Verified 04/17/23 15:10 SWELLING, WHEEZING lactase Allergy Unknown Wheezing Verified 04/17/23 15:10 milk Allergy Unknown Wheezing Verified 04/17/23 15:10 naproxen Allergy Unknown BLEEDING Verified 04/17/23 15:10 ULCER NSAIDS (Non-Steroidal Allergy Unknown BLEEDING Verified 04/17/23 15:10 Anti-Inflamma ULCER WITH PRESCIPTION NSAIDS Penicillins Allergy Unknown Unknown Verified 04/17/23 15:10 Reaction Contrast Media Allergy Unknown RESPIR. Uncoded 04/17/23 15:10 DISTRESS Dairy Allergy Unknown WHEEZING Uncoded 04/17/23 15:10 Review of Systems Review of Systems: CONSTITUTIONAL: Denies fever CARDIOVASCULAR: Reports chest pain, palpitations. Denies edema. RESPIRATORY: Reports dyspnea. Denies cough GASTROINTESTINAL: Reports abdominal pain, nausea. Denies vomiting, or diarrhea. All systems reviewed & are unremarkable except as noted in HPI and below PMFSH Past Medical History Medical History (Updated 04/17/23 @ 20:22 by Marika Delgado PA-C) Acute otitis externa of right ear Acute otitis media with effusion of right ear Acute stress reaction Anemia Asthma Asthma exacerbation Bronchitis Congestion of both ears Eosinophilic asthma History of GI bleed History of ovarian cyst 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 Moderate persistent asthma Pollen allergies Recurrent incisional hernia with incarceration Seasonal allergies Ulcer Surgical History Surgical History H/O hernia repair 2015 and 2016 History of classical section x3 History of colonoscopy History of esophagogastroduodenoscopy (EGD) History of hysterectomy History of tooth extraction multiple Family History Family History Mother Family history of osteoporosis Asthma Patient's mother is in good health Father Family history of heart disease in male family member before age 55 Hypertension Asthma Patient's father is in good health Family history of cardiovascular disease Diabetes mellitus Grandparent Colon cancer Other Family history of allergic disorder Social History Social History Social History: She is and has 3 children. 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
[2023-04-17 18:43] LABS: Troponin I < 0.012 ng/mL (0.000-0.034)
[2023-04-17] MEDS: PANTOPRAZOLE SODIUM IV 40 MG VIAL IV PUSH (18:46)
--- NOTE | 2023-04-17 19:15 | PC.NURSE ---
Assumed care of pt from LIDIA Maxwell at this time. Pt resting comfortably in bed. Provided pt with warm blanket.
[2023-04-17 19:16] VITALS: BP 141/89; PULSE 96; RESP 18; O2SAT 98
[2023-04-17 19:31] VITALS: BP 157/90; PULSE 97; RESP 20; O2SAT 97
== END 2023-04-17 20:50 | disposition home or self-care (01) ==
PROVIDERS: Preventive Medicine Aerospace Medicine; Emergency Provider Physician Assistant; PCP Family Medicine
DX: E05.00 Thyrotoxicosis with diffuse goiter without thyrotoxic crisis or storm (principal); R07.89 Other chest pain; R00.2 Palpitations; J45.40 Moderate persistent asthma, uncomplicated; J82.83 Eosinophilic asthma; Z86.2 Personal history of diseases of the blood and blood-forming organs and certain disorders involving the immune mechanism; Z90.710 Acquired absence of both cervix and uterus; R94.31 Abnormal electrocardiogram [ECG] [EKG]; I45.10 Unspecified right bundle-branch block
CPT/HCPCS: 36415; 71046; 80053; 83690; 84484; 85025; 85610; 85730; 93005; 96374; 99284; C9113

== ENCOUNTER 2023-04-27 09:10 | Outpatient (CLI) | payer OTHER, SELFPAY ==
--- NOTE | 2023-04-28 14:01 | WPDPFTINT ---
PFT Procedure Performed PFT Procedure Performed Spirometry with Pre/Post Bronchodilator Plethysmography (Lung Vol) Diffusing Cap (DLCO) Flow Vol Loop PFT Interpretation Lung volumes were measured with the body plethysmography method. Lung volumes are unremarkable. Spirometry showed diminished expiratory flow rates and a normal FEV1 to FVC ratio of 82%. Following administration of a bronchodilator there was borderline increase in forced vital capacity. Lung diffusion capacity is near normal at 70% predicted. The restrictive pattern on spirometry in the face of a normal total lung capacity is consistent with a nonspecific pattern. Flow volume loop is unremarkable. Impression: Nonspecific pattern. Borderline normal lung diffusion capacity.
== END 2023-04-27 09:11 | disposition home or self-care (01) ==
PROVIDERS: PCP Family Medicine; Visit Provider Physician Assistant
DX: J45.40 Moderate persistent asthma, uncomplicated (principal)
CPT/HCPCS: 94060; 94726; 94729

== ENCOUNTER 2024-02-20 08:01 | Outpatient (CLI) | payer OTHER, SELFPAY ==
--- NOTE | ~2024-02-20 | US_ITS ---
EXAMINATION: US thyroid DATE: 02/20/2024 08:21 INDICATION: Graves disease. TECHNIQUE: Multiple ultrasound images of the thyroid were obtained. COMPARISON: Ultrasound 10/15/2022 FINDINGS: The right thyroid lobe measures 3.7 x 1.5 x 1.4 cm. The left thyroid lobe measures 3.8 x 1.5 x 1.5 c m. The thyroid is diffusely heterogeneous and hypoechoic. Vascularity is increased. In the right thy roid lobe, there is a 4 mm cystic nodule (TI-RADS TR1), likely benign. IMPRESSION: 1. Heterogeneous, hypervascular thyroid, consistent with chronic lymphocytic (Jennifer) thyroiditis versus Graves disease. Reviewed, dictated and finalized at location A. IMPRESSION: 1. Heterogeneous, hypervascular thyroid, consistent with chronic lymphocytic (H ashimoto) thyroiditis versus Graves disease.
== END 2024-02-20 08:02 | disposition home or self-care (01) ==
PROVIDERS: PCP Family Medicine; Visit Provider Internal Medicine
DX: E05.00 Thyrotoxicosis with diffuse goiter without thyrotoxic crisis or storm (principal); E04.1 Nontoxic single thyroid nodule
CPT/HCPCS: 76536

== ENCOUNTER 2025-01-05 07:36 | Outpatient (CLI) | payer OTHER, SELFPAY ==
--- NOTE | ~2025-01-05 | US_ITS ---
Limited Abdominal Sonogram: Real-time sonographic imaging of the right upper quadrant was performed. Clinical History: Follow-up liver nodularity seen on prior outside ultrasound Findings: The liver appears normal with no evidence of mass lesion or bile duct dilatation. Main por nahid vein demonstrates normal direction of flow. The gallbladder is well distended, and appears normal with no evidence of gallstone or wall thickening. The common bile duct measures 2 mm. The visualize d pancreas, aorta, and IVC are unremarkable. Impression: No significant abnormality seen. Reviewed, dictated and finalized at location M. Impression: No significant abnormality seen.
--- OUTSIDE RECORDS SUMMARY | 2025-01-05 07:42 | XMS_ITS | Clinical Summary ---
Author Organization [facility] Address [address] [place] [address] Phone Care Team Providers Care Editorial Intern Name Role Phone Sonya Jay MD Primary Care Provider [phone] Allergies Active Allergy Reactions Criticality Noted Date Comments Iodinated Contrast Media Other (See Comments) 0 04/21/2023 Naproxen Nausea and Vomiting Low 06/09/2009 Nsaids (Non-Steroidal Anti-Inflammatory Drug) Nausea and Vomiting Low 07/05/2009 Medications albuterol (PROVENTIL,MICHAEL TOLIN) 2.5 mg /3 mL (0.083 %) Inhalation Nebu Take 2.5 mg by inhalation see administration instructions. Active budesonide-for moterol (SYMBICORT) 160-4.5 mcg/actuation HFA Aerosol Inhaler Take 2 Puffs by inhalation 2 times daily. Active MONTELUKAST SODIUM (SINGULAIR ORAL) Take by mouth. Activ e cetirizine (ZYRTEC) 10 mg Tablet, Chewable Take 1 Tab by mouth daily. 20 Tab None 4 Active Breztri Aerosphere 160-9-4.8 mcg/actuation HFA Aerosol Inhaler Take 2 Puffs by inhalation 2 times daily. 3 Active furosemide (LASIX) 20 mg tablet Take 20 mg by mouth daily. 3 Active methIMAzole (TAPAZOLE) 5 mg tablet Take 25 mg by mouth daily. 3 Active propranoloL (INDERAL) 20 mg tablet Take 20 mg by mouth 4 times daily. 3 Active azelastine (ASTELIN) 137 mcg/actuation nasal spray Administer 1 [place] in each nostril daily. 3 Active Active Problems Problem Noted Date Diagnosed Date Intermittent palpitations 04/21/2023 Chest discomfort 04/21/2023 Hyperthyroidism 04/21/2023 Acute asthma exacerbation 11/24/2011 Asthma with acute exacerbation 11/24/2011 Acute bronchitis 11/24/2011 VT (ventricular tachycardia) 06/12/2009 GIB (gastrointestinal bleeding) 06/09/2009 Social History Tobacco Use Types Packs/Day Years Used Date Smoking Tobacco: Never Smokeless Tobacco: Never Alcohol Use Standard Drinks/Week Comments Yes 0 (1 standard drink = 0.6 oz pur e alcohol) socially Feeling Safe Answer Date Recorded Are you in a relationship wi th someone who hurts you emotionally and/or physically? No 04/21/2023 Comments No Sex and Gender Information Value Date Recorded Sex Assigned at Not on file Legal Sex Female 5:48 AM CARE ASSOCIATE Gender Identity Not on file Sexual Orientation Not on file Last Filed Vital Signs Vital Sign Reading Time Taken Comments Blood Pressure 139/84 04/22/2023 4:50 PM CDT Pulse 80 04/22/2023 4:50 PM CDT Temperature 36.7 C (98 F) 04/22/2023 4:50 PM CDT Respiratory Rate 20 04/22/2023 4:50 PM CDT Oxygen Saturation 97% 04/22/2023 4:50 PM CDT Inhaled Oxygen Concentration - - Weight 90.3 kg (199 lb) 04/21/2023 10:20 AM CDT Height 172.7 cm (5' 8 ) 04/21/2023 10:20 AM CDT Body Mass Index 30.26 04/21/2023 10:20 AM CDT Plan of Treatment Health Maintenance Due Date Last Done Comments DTAP/TDAP/TD VACCINES (1 - Tdap) 1987 HEPATITIS B VACCINES (1 of 3 - 19+ 3-dose series) 03/17 BREAST CANCER SCREENING 2008 FIT-DNA Q 3 years 2013 FIT/FOBT Q 1 year 2013 Flex Sig/CT Colonography Q 5 years 2013 ZOSTER VACCINE (1 of 2) 2018 COLORECTAL SCREENING 07/09/2019 07/09/2009 Colorectal Cancer Screening 07/09/2019 INFLUENZA VACCINE (#1) 2024 Insurance [employer] OPEN ACCESS HMO Advance Directives For more information, please contact: [phone] * Default Full Code - Needs Discussion (Latest Code Status on File) Date Activated Date Inactivated Comments 04/21/2023 9:08 PM 04/22/2023 7:51 PM * Full Code Date Activated Date Inactivated Comments 11/24/2011 2:42 PM 11/25/2011 1:22 PM * Full Code Date Activated Date Inactivated Comments 07/09/2009 1:36 PM 07/10/2009 2:02 AM Care Teams Editorial Intern Relationship Specialty Start Date End Date Sonya Jay MD PCP - General Family Practice 03/09/19
--- OUTSIDE RECORDS SUMMARY | 2025-01-05 07:42 | XMS_ITS | Clinical Summary ---
Author Organization [facility] Address [address] [place] [address] Care Team Providers Care Tungsten Tender Name Role Phone Sonya Jay MD Primary Care Provider Juan Wellington MD Unavailable [phone] Avril Iglesias MD Unavailable [phone] Neri Groves MD Unavailable [phone] Allergies Active Allergy Reactions Criticality Noted Date Comments Iodinated Contrast Media Swollen tongue High Throat itch, throat swell Naproxen Nausea And Vomiting Low 06/09/2009 Had bleeding ulcer from prescription strength Nsaids (Non-Steroidal Anti-Inflammatory Drug) Other (See comments) Medium Had prescription nsaid in 2009 and got bleeding ulcers Medications furosemide (LASIX) 20 mg tablet Take 1 tablet (20 mg total) by mouth every morning 3 Active Breztri Aerosphere 160-9-4.8 mcg/actuation HFA aerosol inhaler 3 Active albuterol HFA (PROVENTIL HFA,VENTOLIN HFA,PROAIR HFA) 90 mcg/actuation inhaler 3 Active montelukast (SINGULAIR) 10 mg tablet Take 1 tablet (10 mg total) by mouth nightly at bedtime 3 Active azelastine (ASTELIN) 137 mcg (0.1 %) nasal spray Administer 1 spray into affected nostril(s) daily 3 Active cetirizine (ZyrTEC) 10 mg chewable tablet Take 1 tablet (10 mg total) by mouth daily 4 Active Flovent HFA 220 mcg/actuation inhaler INHALE 2 PUFFS BY MOUTH EVERY 12 HOURS. ADMINISTER WITH SPACER 3 Active albuterol 2.5 mg /3 mL (0.083 %) nebulizer solution Inhale 3 mL (2.5 mg total) Active busPIRone (BUSPAR) 10 mg tablet Take 1 tablet (10 mg total) by mouth 2 (two) times a day 3 Active methIMAzole (TAPAZOLE) 10 mg tablet TAKE 2 TABLETS BY MOUTH TWICE DAILY IN THE MORNING AND IN THE EVENING 3 Active propranoloL (INDERAL) 40 mg tablet TAKE 1 TABLET BY MOUTH EVERY 8 HOURS. HOLD IF SYSTOLIC BLOOD PRESSURE IS LESS THAN 100 OR AT BEDTIME IS LESS THAN 50 3 Active lidocaine viscous (XYLOCAINE) 2 % solutionIndication s:Pharyngitis, unspecified etiology Gargle and spit 5 mls PO every six hours as needed for discomfort. Do not exceed maximum dose of of 4 times daily. 50 mL 4 Active famotidine (PEPCID) 20 mg tablet Take 1 tablet (20 mg total) by mouth daily 30 tablet 4 025 Active ondansetron ODT (ZOFRAN-ODT) 4 mg disintegrating tablet Take 1 tablet (4 mg total) by mouth every 8 (eight) hours as needed for nausea or vomiting 20 tablet 4 Active al & mag hydroxide simethicone-lidoca ine oral suspension mixture Take 20 mL by mouth every 6 (six) hours as needed (For epigastric pain) 200 mL 4 Active Active Problems Problem Noted Date Diagnosed Date Hyperthyroidism without crisis 05/13/2023 Other thyrotoxicosis without thyrotoxic crisis o r storm 05/13/2023 Ovarian retention cyst 03/02/2012 Surgical History Surgery Date Site/Laterality Comments NE COLONOSCOPY FLX DX W/COLLJ SPEC WHEN PFRMD Complete Colonoscopy - (Added by TW Conv) OOPHORECTOMY 08/17/2009 - 08/16/2010 Right Oophorectomy - (Added by TW Conv) SECTION x 3 OOPHERECTOMY 08/17/2017 - 08/16/2018 Left HYSTERECTOMY 08/17/1999 - 08/16/2000 ABDOMINAL HERNIA REPAIR 08/17/2014 - 08/16/2015 x2 and 2016 TONSILLECTOMY Medical History Medical History Date Comments Personal history of other sp ecified conditions History of abdominal pain - (Added by TW Conv) Asthma Allergies seasonal allergi es Family History Medical History Relation Name Comments Bone cancer Maternal Grandfather Colon cancer Maternal Grandfather Cancer Maternal Grandmother Relation Name Status Comments Maternal Grandfather Maternal Grandmother Social History Tobacco Use Types Packs/Day Years Used Date Smoking Tobacco: Never Smokeless Tobacco: Never Alcohol Use Standard Drinks/Week Comments Not Currently 0 (1 standard drink = 0.6 oz pur e alcohol) AUDIT-C Answer Date Recorded Q1: How often do you have a drink containing alc ohol? Never 05/13/2023 Average Number of Drinks Not on file 023 Frequency of Binge Drinking Not on file 04/18 Personal Safety Answer Date Recorded Have you ever been in or are you currently in a harmful physical or emotional relationship or is someone making you feel afraid or unsafe? Denies 04/25/2024 Comments Unknown Sex and Gender Information Value Date Recorded Sex Assigned at Not on file Legal Sex Female 9:11 PM CONSTRUCTION ASSISTANT Gender Identity Not on file Sexual Orientation Not on file Obstetrics History Last Filed Vital Signs Vital Sign Reading Time Taken Comments Blood Pressure 154/90 04/25/2024 10:15 PM CDT Pulse 80 04/25/2024 10:15 PM CDT Temperature 36.7 C (98.1 F) 04/25/2024 3:17 PM CDT Respiratory Rate 18 04/25/2024 10:15 PM CDT Oxygen Saturation 97% 04/25/2024 10:15 PM CDT Inhaled Oxygen Concentration - - Weight 95.3 kg (210 lb) 04/25/2024 1:11 PM CDT Height 172.7 cm (5' 8 ) 04/25/2024 1:11 PM CDT Body Mass Index 31.93 04/25/2024 1:11 PM CDT Plan of Treatment Health Maintenance Due Date Last Done Comments Breast Cancer Screening-Mammogram 1968 Colon Cancer Screening-Colonoscopy 1968 Depression Screening 1968 Hepatitis C Screening 1968 DTaP/Tdap/Td Vaccine (1 - Tdap) 1979 Hepatitis B Screening 1986 Regular Well Visit/Exam 18-64 1986 Pneumococcal vaccine <65 (1 of 2 - PCV) 1987 Zoster Vaccine (1 of 2) 2018 Covid-19 Vaccine (5 - 2023-2 5 season) 2024 05/20/2022, 08/02/2021, 12/05/2020, Additional history exists Influenza Vaccine (Season Ended) 2025 Insurance [facility]/PPO Address: [address] [address] Care Teams Tungsten Tender Relationship Specialty Start Date End Date Sonya Jay MD [address] [place] [address] PCP - General Family Medicine 02/03/23 Juan Wellington MD [address] [place] [address] Consulting Physician Internal Medicine 04/29/23 Avril Iglesias MD [address] [place], [place] [id number] Radiation Oncologist Radiation Oncology 04/29/23 Neri Groves MD [address] [facility] DEPT OTOLARYNGOLOGY, [address] [place] [address] Surgeon Otolaryngology 05/13/23
--- OUTSIDE RECORDS SUMMARY | 2025-01-05 07:42 | XMS_ITS | Clinical Summary ---
Author Organization [facility] Address [address] [place] [address] Care Team Providers Care Baseball Inspector Name Role Phone Sonya Jay MD Primary Care Provider + Source Comments [facility],non-owned Affiliates and Associated Physician Practices is amultiple site organization consisting of ambulatory clinics and hospital sitesin [place], [place] and [place]. This disclosure is being madepursuant to the Care Everywhere program and may not contain all information available regarding this patient. Last updated 18.[employer] [facility] Allergies Active Allergy Reactions Criticality Noted Date Comments Contrast-Iodinated Agents For Ct/Other Other High 04/21/2023 Throat itch, throat swell Naproxen Nausea and/or Vomiting Low 06/09/2009 Had bleeding ulcer from prescription strength Nsaids Nausea and/or Vomiting,Other Medium 07/05/2009 Had prescription nsaid in 2009 and got bleeding ulcers Medications * Be aware that medications may not be up to date on this document. Alwaysverify current medications with the patient. montelukast (Singulair) 10 MG tablet Take 1 (one) tablet by mouth once daily Active albuterol (Proventil;Vent cammie) (2.5 MG/3ML) 0.083% nebulizer solution Inhale 2.5 (two and one-half) mg by mouth as needed Active albuterol HFA (Proventil; Ventolin; Proair) 108 (90 Base) MCG/ACT inhaler Inhale 2 (two) puffs by mouth every 4 hours as needed 03/18/2023 Active azelastine (Astelin) 0.1 % nasal spray [place] 1 (one) spray into the nose once daily 03/19/2023 Active Budeson-Glycopy rrol-Formoterol (Breztri Aerosphere) 160-9-4.8 MCG/ACT AERO Inhale 2 puffs by mouth 2 times daily 03/18/2023 Active busPIRone (Buspar) 10 MG tablet Take 1 (one) tablet by mouth 2 times daily 10/24/2022 Active Flovent HFA 220 MCG/ACT inhaler Inhale 2 (two) puffs by mouth every 12 hours 05/07/2023 Active furosemide (Lasix) 20 MG tablet Take 1 (one) tablet by mouth once daily 02/20/2023 Active methIMAzole (Tapazole) 5 MG tablet Take 5 (five) tablets by mouth once daily 01/22/2023 Active propranolol (Inderal) 20 MG tablet Take 1 (one) tablet by mouth 4 times daily 04/17/2023 Active Active Problems Problem Noted Date Diagnosed Date Hyperthyroidism 05/13/2023 Resolved Problems Problem Noted Date Diagnosed Date Resolved Date Hypothyroidism 05/13/2023 05/13/2023 Social History Tobacco Use Types Packs/Day Years Used Date Smoking Tobacco: Never Smokeless Tobacco: Never Alcohol Use Standard Drinks/Week Comments Never 0 (1 standard drink = 0.6 oz pur e alcohol) Comments Unknown Sex and Gender Information Value Date Recorded Sex Assigned at Not on file Legal Sex Female 11:19 AM CDT Gender Identity Not on file Sexual Orientation Not on file Last Filed Vital Signs Vital Sign Reading Time Taken Comments Blood Pressure 129/82 05/13/2023 1:50 PM CDT Pulse 105 05/13/2023 1:50 PM CDT Temperature - - Respiratory Rate - - Oxygen Saturation - - Inhaled Oxygen Concentration - - Weight 93.9 kg (207 lb) 05/13/2023 1:50 PM CDT Height 172.7 cm (5' 8 ) 05/13/2023 1:50 PM CDT Body Mass Index 31.47 05/13/2023 1:50 PM CDT Plan of Treatment Health Maintenance Due Date Last Done Comments COLOGUARD (AGES 45-75) - COL ON CA SCREENING 1968 COLON MONITORING 1968 COLONOSCOPY - COLON CA SCREENING 1968 CT COLONOGRAPHY - COLON CA SCREENING 1968 Colorectal Cancer Screening 1968 FIT - COLON CA SCREENING 1968 FLEX SIG - COLON CA SCREENING 1968 LIPID TESTING 1968 MAMMOGRAM 1968 PAP SMEAR 1968 HIV SCREENING 1983 HEPATITIS C SCREENING 03/22/1986 DTAP/TDAP/TD VACCINES (1 - Tdap) 1987 HEPATITIS B VACCINE (1 of 3 - 19+ 3-dose series) 1987 PNEUMOCOCCAL VACCINE 50+ (1 of 1 - PCV) 2018 ZOSTER VACCINE (1 of 2) 2018 SCREENING FOR DIABETES 05/13/2023 COVID-19 VACCINE (3 - 2023-2 5 season) 2024 12/05/2020, 11/07/2020 DEPRESSION SCREENING 08/17/2024 INFLUENZA VACCINE (Season Ended) 2025 HIB VACCINE Aged Out No longer eligi ble based on patient's age to complete this topic HPV VACCINE Aged Out No longer eligi ble based on patient's age to complete this topic MENINGOCOCCAL (Group B) VACCINE SHARED DECISION-MAKING Aged Out No longer eligible based on patient's age to complete this topic MENINGOCOCCAL GROUPS A/C/Y/W VACCINE Aged Out No longer eligible b ased on patient's age to complete this topic [facility] Care Teams Baseball Inspector Relationship Specialty Start Date End Date Sonya Jay MD [address] [facility] [address] [place], [place] [id number] PCP - General Family Medicine 05/13/23
--- OUTSIDE RECORDS SUMMARY | 2025-01-05 07:42 | XMS_ITS | Referral Summary ---
Author Organization [facility] Address [address] [place] [address] Care Team Providers Care Air Bag Curer Name Role Phone Sonya Jay MD Primary Care Provider Juan Wellington MD Unavailable [phone] Avril Iglesias MD Unavailable [phone] Neri Groves MD Unavailable [phone] Allergies Active Allergy Reactions Criticality Noted Date [...] r storm 05/13/2023 Ovarian retention cyst 03/02/2012 Social History Tobacco Use Types Packs/Day Years [...] on file Legal Sex Female 9:11 PM REC THERAPIST Gender Identity Not on file Sexual Orientation [...] 04/25/2024 1:11 PM CDT Plan of Treatment Not [place] [address] [facility] H[facility]/PPO Address: [address] [address] [place] [address] Care Teams Air Bag Curer Relationship Specialty Start Date End Date Sonya Jay MD [address] [address] PCP - General Family Medicine 02/03/23 Juan Wellington MD [address] [address] Consulting Physician Internal Medicine 04/29/23 Avril Iglesias MD [address] [address] Radiation Oncologist Radiation Oncology 04/29/23 Neri Groves MD [address] [facility] OTOLARY[facility]OLOGY, [address] [place] [address] Surgeon Otolaryngology 05/13/23
== END 2025-01-05 07:37 | disposition home or self-care (01) ==
PROVIDERS: PCP Family Medicine; Visit Provider Physician Assistant
DX: R93.5 Abnormal findings on diagnostic imaging of other abdominal regions, including retroperitoneum (principal); R93.2 Abnormal findings on diagnostic imaging of liver and biliary tract
CPT/HCPCS: 76705